=== PATIENT | female | born 1970 ===

== ENCOUNTER 2021-05-28 17:59 | Emergency (ER) ==
[~2021-05-28] VITALS: Ht 152.4 cm; Wt 90.7 kg
[2021-05-28] MEDS ORDERED: SOTROVIMAB 500 MG in SODIUM CHLORIDE 0.9% 100 ML IV ONE (18:30)
== END 2021-05-28 20:32 | disposition home or self-care (01) ==
LOC: ER 18:25
DX: U07.1 COVID-19 (principal); L43.9 Lichen planus, unspecified; Z79.899 Other long term (current) drug therapy
CPT/HCPCS: 99283; J7050